=== PATIENT | female | born 1945 | race American Indian/Alaskan Native ===

== ENCOUNTER 2018-04-19 07:52 | Emergency (ER) | payer MEDICARE ==
[2018-04-19 08:13] VITALS: O2SAT 98; BMI 41.5
--- NOTE | 2018-04-19 08:14 | C.PDOC ---
History Of Present Illness 72 year old female, with past medical history of diabetes, and HTN, presents to ED for evaluation of lower back pain radiating down to her left buttock and leg for the past 3 weeks. Pt reports difficulty with walking secondary to pain. Otherwise, denies trauma, injury, weakness, numbness, nausea, vomiting, diarrhea, bowel or bladder incontinence/retention, fever, chills, chest pain, or shortness of breath. Chief Complaint (Nursing): Hip Pain History Per: Patient History/Exam Limitations: no limitations Onset/Duration Of Symptoms: Days Current Symptoms Are (Timing): Still Present Recent travel outside of the [place]: No Past Medical History Reviewed: Historical Data, Nursing Documentation, Vital Signs Vital Signs: Last Vital Signs Temp Pulse 60 04/19/18 08:01 Resp 18 04/19/18 08:01 BP 201/76 H 04/19/18 08:01 Pulse Ox 98 04/19/18 08:01 - Medical History PMH: HTN, Hypercholesterolemia Family History: States: Unknown Family Hx - Social History Hx Alcohol Use: No Hx Substance Use: No - Immunization History Hx Tetanus Toxoid Vaccination: No Hx Influenza Vaccination: No Hx Pneumococcal Vaccination: No Review Of Systems Except As Marked, All Systems Reviewed And Found Negative. Constitutional: Negative for: Fever, Chills Gastrointestinal: Negative for: Nausea, Vomiting, Abdominal Pain Genitourinary: Negative for: Dysuria, Frequency, Incontinence, Hematuria Musculoskeletal: Positive for: Back Pain Neurological: Negative for: Weakness, Numbness Physical Exam - Physical Exam Appears: Non-toxic, No Acute Distress Skin: Normal Color, Warm, Dry Head: Atraumatic, Normacephalic Eye(s): bilateral: Normal Inspection Oral Mucosa: Moist Neck: Normal ROM, Supple Cardiovascular: Rhythm Regular, No Murmur Respiratory: Normal Breath Sounds, No Rales, No Rhonchi, No Wheezing Gastrointestinal/Abdominal: Soft, No Tenderness Back: No Vertebral Tenderness, Paraspinal Tenderness (mild paralumbar tenderness L4-L5. ), No Straight Leg Raising Extremity: Normal ROM, No Tenderness, No Deformity, No Swelling Neurological/Psych: Oriented x3, Normal Speech, Normal Motor, Normal Sensation ED Course And Treatment O2 Sat by Pulse Oximetry: 98 (RA) Pulse Ox Interpretation: Normal Medical Decision Making Medical Decision Making: Impression: sciatic pain Plan: * Toradol * Valium On re-eval, pt states she continues to have pain. Blood pressure still remains elevated. Additional pain medications ordered. Hydralazine ordered. On reassessment, blood pressure has improved. Pt reports feeling better and is no longer having back pain. Patient is being discharged home with Rx and instructed to follow up with PMD in 2-5 days for further evaluation. Disposition - Disposition Referrals: [facility] at [facility] [Outside] [facility] at [facility] [Outside] [facility] [place] [Outside] Disposition: HOME/ ROUTINE Disposition Time: 11:04 Condition: GOOD Prescriptions: Cyclobenzaprine [Cyclobenzaprine HCl] 10 mg PO Q8 #10 tab Ibuprofen [Motrin] 600 mg PO Q6 #20 tab Instructions: Low Back Pain in Adults Forms: [employer] (Faroese) - Clinical Impression Clinical Impression: Low back pain, Sciatica - Scribe Statement The provider has reviewed the documentation as recorded by the Scribe KP All medical record entries made by the Scribe were at my direction and personally dictated by me. I have reviewed the chart and agree that the record accurately reflects my personal performance of the history, physical exam, medical decision making, and the department course for this patient. I have also personally directed, reviewed, and agree with the discharge instructions and disposition.
[2018-04-19 08:22] VITALS: RESP 20
[2018-04-19] MEDS ORDERED: Lidocaine 5% Patch TD ONE (09:32)
[2018-04-19 11:04] VITALS: BP 157/85; PULSE 78
== END 2018-04-19 11:07 | disposition home or self-care (01) ==
LOC: C.ER 07:52
DX: M54.40 Lumbago with sciatica, unspecified side (principal)
CPT/HCPCS: 96372; 99285; J1885